=== PATIENT | male | born 1975 | race African-American/Black ===

== ENCOUNTER 2019-12-07 19:42 | Emergency (ER) | payer OTHER ==
[2019-12-07] MEDS ORDERED: ALBUTEROL SO4 HFA INHALER IH ONE (19:56)
[2019-12-07] MEDS ORDERED: ACETAMINOPHEN 500 MG TABLET (FP) PO ONE (19:59)
[2019-12-07] MEDS ORDERED: DEXAMETHASONE 4 MG TABLET (FP) PO ONE (20:00)
[2019-12-07] MEDS ORDERED: predniSONE 10 MG TABLET (UD) ONE (20:05)
[2019-12-07] MEDS ORDERED: ACETAMINOPHEN 325 MG TABLET (FP) ONE (20:05)
[2019-12-07 21:10] VITALS: BP 122/88; PULSE 98; TEMP 98.8
== END 2019-12-07 21:13 | disposition home or self-care (01) ==
LOC: JER 19:42
PROC: 3E0F7GC Introduction of Other Therapeutic Substance into Respiratory Tract, Via Natural or Artificial Opening (ICD-10-PCS; principal; 2019-12-07)
DX: J45.909 Unspecified asthma, uncomplicated (principal)
CPT/HCPCS: 71045-TC-FY; 99284-25

== ENCOUNTER 2024-06-27 15:16 | Emergency (ER) | payer OTHER ==
[2024-06-27 15:34] VITALS: BP 118/72; PULSE 103; RESP 20; TEMP 98.4; BMI 58.1
[2024-06-27] MEDS: LACTATED RINGERS SOLUTION 1000 ML INFUS.BAG IV ONE (17:00)
[2024-06-27 17:38] LABS: BASO % 0.7 % (0-2.0); EOS % 0.4 % (0-4.5); HEMATOCRIT 38.2 % (35.4-49); HEMOGLOBIN 12.8 GM/dL (11.7-16.9); LYMPH % 13.5 % (8-40); MCH 27.2 pg (25.7-33.7); MCHC 33.6 g/dl (32.0-35.9); MEAN CELL VOLUME 80.8 fl (80-96); MEAN PLT VOLUME 7.6 fl (7.5-11.1); MONO % 8.6 % (3.8-10.2); NEUT % 76.8 % (42.8-82.8); PLATELET COUNT 260 10^3/uL (134-434); RBC 4.72 M/mm3 (4.00-5.60); WHITE BLOOD COUNT 11.5 K/mm3 (4.0-10.0)
[2024-06-27 17:48] LABS: POTASSIUM 4.7 mmol/L (3.5-5.1)
[2024-06-27 17:50] LABS: ALBUMIN 3.5 g/dl (3.4-5.0); BLOOD UREA NITROGEN 17.2 mg/dL (7-18); CALCIUM 9.3 mg/dL (8.5-10.1)
[2024-06-27 17:51] LABS: INR 1.1 (0.83-1.09); PROTHROMBIN TIME (PATIENT) 12.6 SEC (9.7-13.0)
[2024-06-27 17:53] LABS: CREATININE 1.2 mg/dL (0.55-1.3)
[2024-06-27 17:55] LABS: TOT PROT 7.7 g/dl (6.4-8.2)
== END 2024-06-27 18:39 | disposition home or self-care (01) ==
LOC: JER 15:16
DX: R55 Syncope and collapse (principal); R06.02 Shortness of breath; R53.1 Weakness; R42 Dizziness and giddiness; R60.0 Localized edema; Z20.822 Contact with and (suspected) exposure to COVID-19
CPT/HCPCS: 0241U-QW; 36415; 71045-TC-FY; 80053; 82962; 83735; 84484; 85025; 85610; 85730; 93005; 93010; 93970-TC; 99285-25

== ENCOUNTER 2025-05-17 05:58 | Emergency (ER) | payer OTHER ==
[2025-05-17 06:28] VITALS: BP 138/92; PULSE 85; RESP 20; TEMP 97.9; BMI 57.8
[2025-05-17] MEDS ORDERED: ONDANSETRON 4 MG/2 ML VIAL ONE (08:28)
[2025-05-17] MEDS ORDERED: FAMOTIDINE 10 MG/ML VIAL IVPB ONE (08:28)
[2025-05-17] MEDS ORDERED: ACETAMINOPHEN INJECTION 100 ML ONE (08:28)
[2025-05-17] MEDS: ACETAMINOPHEN 1000 MG/100 ML BAG IVPB ONE (08:29)
[2025-05-17] MEDS: ONDANSETRON 4 MG/2 ML VIAL IVPUSH ONE (08:29)
[2025-05-17] MEDS: FAMOTIDINE 20 MG TABLET PO ONE (08:30)
[2025-05-17 08:42] LABS: ABSOLUTE IMMATURE GRANULOCYTES 0.03 x10^3/uL (0.0-0.031); BASOPHILS # 0.05 x10^3/uL (0.01-0.08); EOSINOPHIL % 1.5 % (0.8-7.0); EOSINOPHILS # 0.14 x10^3/uL (0.04-0.54); MCHC 31.3 g/dl (32.3-36.5); MEAN CELL VOLUME 85.3 fl (79.0-92.2); MEAN PLT VOLUME 9.3 fl (9.4-12.4); MONOCYTE # 0.72 x10^3/uL (0.30-0.82); MONOCYTE % 7.6 % (5.3-12.2); RDW 14.1 % (12.1-15.9)
[2025-05-17 09:28] LABS: GLUCOSE,RANDOM 103.0 mg/dL (74-106); TOT PROT 7.8 g/dl (6.4-8.2)
[2025-05-17 09:29] LABS: CO2 23.0 mmol/L (21-32)
[2025-05-17 09:30] LABS: ALK PHOS 116.0 U/L (40-150)
[2025-05-17 09:33] LABS: SGOT/AST 55.0 U/L (5-34); SGPT/ALT 56.0 U/L (0-55)
[2025-05-17 09:34] LABS: CREATININE 0.96 mg/dL (0.55-1.3)
[2025-05-17 10:02] LABS: HCV DIAGNOSTIC IN-HOUSE W/RFLX NON-REACTIVE (NONREACTIVE); HIV INTERPRETATION NEGATIVE (NEGATIVE)
[2025-05-17] MEDS ORDERED: MAGNESIUM CITRATE 300 ML BOTTLE ONE (12:23)
[2025-05-17] MEDS: MAGNESIUM CITRATE 300 ML BOTTLE PO ONE (12:39)
== END 2025-05-17 12:50 | disposition home or self-care (01) ==
LOC: JER 05:58
PROC: 3E033NZ Introduction of Analgesics, Hypnotics, Sedatives into Peripheral Vein, Percutaneous Approach (ICD-10-PCS; principal; 2025-05-17)
PROC: 3E033GC Introduction of Other Therapeutic Substance into Peripheral Vein, Percutaneous Approach (ICD-10-PCS; 2025-05-17)
DX: R10.13 Epigastric pain (principal); K59.00 Constipation, unspecified; R60.0 Localized edema; R11.0 Nausea; R61 Generalized hyperhidrosis; R42 Dizziness and giddiness; R14.0 Abdominal distension (gaseous); R68.83 Chills (without fever)
CPT/HCPCS: 36415; 74177-TC; 80053; 83690; 84484; 85025; 86803; 87389; 93005; 93010; 99285-25